=== PATIENT | male | born 1985 | race Caucasian/White ===

== ENCOUNTER 2017-11-11 11:25 | Emergency (ER) | payer BC ==
[2017-11-11] MEDS ORDERED: Sodium Chloride 0.9% 1,000 ML IV ONE ×2 (11:33→12:38)
[2017-11-11] MEDS ORDERED: Sodium Chloride 0.9% 10 ML Syringe FLUSH PRN (11:33)
[2017-11-11] MEDS ORDERED: Ondansetron 4 MG/2 ML SDV IVPUSH ONE (11:47)
[2017-11-11 12:10] LABS: CHLORIDE,CL 105 mmol/L (98-107); SODIUM,NA 142 mmol/L (136-145)
--- NOTE | 2017-11-11 13:22 | EDM.PDOC ---
ED HPI GENERAL MEDICAL PROBLEM - General Chief Complaint: Gastrointestinal Problem Stated Complaint: ABDOMINAL PAIN Time Seen by Provider: 11/11/17 11:33 Source of Information: Reports: Patient History Limitations: Reports: No Limitations - History of Present Illness INITIAL COMMENTS - FREE TEXT/NARRATIVE: Patient reports nausea and vomiting since 0730 this AM. He does state he has been around others with this illness. States he has severe abdominal pain as well that feels like cramping centrally located. Not worse after eating. Has difficulty with drinking. 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 No other sick contact. 1/2 PPD smoker for last 7 months. Has quit in the past but has resumed smoking. 1-2 drinks of either beer or wine with dinner on a daily basis. No blood in urine, stool, emesis. No headache, chest pain LOC, back pain. Onset: Today, Sudden Location: Reports: Abdomen Quality: Reports: Ache Severity: Moderate - Related Data Allergies Allergy/AdvReac Type Severity Reaction Status Date / Time No Known Allergies Allergy Verified 11/11/17 11:37 Home Meds: Home Meds Levothyroxine 0 mcg PO ACBREAKFAST 11/11/17 [History] Past Medical History Endocrine/Metabolic History: Reports: Hypothyroidism Social & Family History - Tobacco Use Smoking Status *Q: Current Every Day Smoker Years of Tobacco use: 10 Packs/Tins Daily: 0.2 ED ROS GENERAL - Review of Systems Review Of Systems: See Below Constitutional: Reports: Chills HEENT: Reports: No Symptoms Respiratory: Reports: No Symptoms Cardiovascular: Reports: No Symptoms Endocrine: Reports: No Symptoms GI/Abdominal: Reports: Abdominal Pain, Diarrhea, Nausea, Vomiting : Reports: No Symptoms Musculoskeletal: Reports: No Symptoms Skin: Reports: No Symptoms Neurological: Reports: No Symptoms Psychiatric: Reports: No Symptoms Hematologic/Lymphatic: Reports: No Symptoms Immunologic: Reports: No Symptoms ED EXAM, GI/ABD - Physical Exam Exam: See Below Exam Limited By: No Limitations General Appearance: Alert, WD/WN, No Apparent Distress Eyes: Bilateral: Normal Appearance, EOMI Ears: Normal External Exam, Normal Canal, Hearing Grossly Normal, Normal TMs Head: Atraumatic, Normocephalic Neck: Normal Inspection, Supple, Non-Tender, Full Range of Motion Respiratory/Chest: No Respiratory Distress, Lungs Clear, Normal Breath Sounds, No Accessory Muscle Use, Chest Non-Tender Cardiovascular: Normal Peripheral Pulses, Regular Rate, Rhythm, No Edema, No Gallop, No JVD, No Murmur, No Rub GI/Abdominal Exam: Normal Bowel Sounds, Soft, Non-Tender, No Organomegaly, No Distention, No Abnormal Bruit, No Mass, Pelvis Stable Back Exam: Normal Inspection, Full Range of Motion, NT Extremities: Normal Inspection, Normal Range of Motion, Non-Tender, Normal Capillary Refill, No Pedal Edema Neurological: Alert, Oriented, CN II-XII Intact, Normal Cognition, Normal Gait, Normal Reflexes, No Motor/Sensory Deficits Psychiatric: Normal Affect, Normal Mood Skin Exam: Warm, Dry, Intact, Normal Color, No Rash Lymphatic: No Adenopathy Course - Vital Signs Last Recorded V/S: Last Vital Signs Temp 36.8 C 11/11/17 11:30 Pulse 110 H 11/11/17 11:30 Resp 18 11/11/17 11:30 BP 130/77 11/11/17 11:30 Pulse Ox 98 11/11/17 11:30 - Orders/Labs/Meds Orders: Active Orders 24 hr Category Date Time Status AMYLASE [CHEM] Stat Lab 11/11/17 11:33 Ordered CBC WITH AUTO DIFF [HEME] Stat Lab 11/11/17 11:33 Ordered COMPREHENSIVE METABOLIC PN,CMP [CHEM] Stat Lab 11/11/17 11:33 Ordered CRP [C-REACTIVE PROTEIN] [CHEM] Stat Lab 11/11/17 11:33 Ordered LIPASE [CHEM] Stat Lab 11/11/17 11:33 Ordered UA W/MICROSCOPIC [URIN] Stat Lab 11/11/17 11:33 Uncollected Sodium Chloride 0.9% [Normal Saline] 1,000 ml Med 11/11/17 11:33 Ordered IV ONETIME Sodium Chloride 0.9% [Saline Flush] Med 11/11/17 11:33 Ordered 10 ml FLUSH ASDIRECTED PRN Saline Lock Insert [OM.PC] Routine Oth 11/11/17 11:33 Ordered Medication Orders Sodium Chloride (Normal Saline) 1,000 mls @ 999 mls/hr IV ONETIME ONE Stop: 11/11/17 12:33 Sodium Chloride (Saline Flush) 10 ml FLUSH ASDIRECTED PRN PRN Reason: Keep Vein Open Meds: Medications Generic Name Dose Route Start Last Admin Trade Name Freq PRN Reason Stop Dose Admin Sodium Chloride 1,000 mls @ 999 mls/hr 11/11/17 11:33 Normal Saline IV 11/11/17 12:33 ONETIME ONE Sodium Chloride 10 ml 11/11/17 11:33 Saline Flush FLUSH ASDIRECTED PRN Keep Vein Open - Re-Assessments/Exams Free Text/Narrative Re-Assessment/Exam: 11/11/17 14:05 Patient hydrated with 2L normal saline, given IV zofran. Labs and urine non specific. No sign of kidney or gall stone. Negative assessment for both appendicitis and cholecystitis Departure - Departure Time of Disposition: 13:27 Disposition: Home, Self-Care 01 Condition: Good Clinical Impression: Abdominal pain, Vomiting, Gastroenteritis and colitis, viral - Discharge Information Instructions: Dehydration, Adult, [id number], Viral Gastroenteritis, Adult, [id number], Abdominal Pain, Adult, [id number], Nausea and Vomiting, Adult, [id number] Additional Instructions: Please review the instructions provided related to gastroenteritis. Stay well hydrated as much as possible. Take the zofran as needed for nausea Follow up with your primary provider as needed for additional symptom management. Call with any questions or concerns. - Problem List & Annotations (1) Gastroenteritis and colitis, viral SNOMED Code(s): 234577322 Code(s): A08.4 - VIRAL INTESTINAL INFECTION, UNSPECIFIED Status: Acute Priority: Low Current Visit: Yes - Problem List Review Problem List Initiated/Reviewed/Updated: Yes - My Orders Last 24 Hours: My Active Orders 11/11/17 11:33 AMYLASE [CHEM] Stat CBC WITH AUTO DIFF [HEME] Stat COMPREHENSIVE METABOLIC PN,CMP [CHEM] Stat CRP [C-REACTIVE PROTEIN] [CHEM] Stat LIPASE [CHEM] Stat UA W/MICROSCOPIC [URIN] Stat Sodium Chloride 0.9% [Normal Saline] 1,000 ml IV ONETIME Sodium Chloride 0.9% [Saline Flush] 10 ml FLUSH ASDIRECTED PRN Saline Lock Insert [OM.PC] Routine - Assessment/Plan Last 24 Hours: My Active Orders 11/11/17 11:33 AMYLASE [CHEM] Stat CBC WITH AUTO DIFF [HEME] Stat COMPREHENSIVE METABOLIC PN,CMP [CHEM] Stat CRP [C-REACTIVE PROTEIN] [CHEM] Stat LIPASE [CHEM] Stat UA W/MICROSCOPIC [URIN] Stat Sodium Chloride 0.9% [Normal Saline] 1,000 ml IV ONETIME Sodium Chloride 0.9% [Saline Flush] 10 ml FLUSH ASDIRECTED PRN Saline Lock Insert [OM.PC] Routine Assessment:: viral gastroenteritis Plan: Please review the instructions provided related to gastroenteritis. Stay well hydrated as much as possible. Take the zofran as needed for nausea Follow up with your primary provider as needed for additional symptom management. Call with any questions or concerns.
== END 2017-11-11 13:38 | disposition home or self-care (01) ==
LOC: VM.ED 11:25
DX: A08.4 Viral intestinal infection, unspecified (principal); F17.210 Nicotine dependence, cigarettes, uncomplicated; E03.9 Hypothyroidism, unspecified; Z79.899 Other long term (current) drug therapy
CPT/HCPCS: 36415; 80053; 81001; 82150; 83690; 85025; 86140; 96361; 96374; 99284; J2405; J7030